=== PATIENT | female | born 1970 | race Caucasian/White ===

== ENCOUNTER 2020-06-13 06:24 | Day surgery (SDC) | payer BC ==
[2020-06-13] VITALS (16 sets, daily range): BP systolic 100–125; BP diastolic 56–103
[~2020-06-13] VITALS: Ht 162.6 cm; Wt 84.7 kg
[2020-06-13] MEDS ORDERED: AMPH15TA PO (06:58)
[2020-06-13] MEDS ORDERED: BUPR300T86 PO (06:58)
[2020-06-13] MEDS ORDERED: AMIT25TA9 (06:58)
[2020-06-13] MEDS ORDERED: VITAMIN D (07:00)
[2020-06-13] MEDS ORDERED: MULT-1085 PO (07:00)
[2020-06-13] MEDS ORDERED: CALCIUM CARBONATE (07:00)
[2020-06-13] MEDS ORDERED: normal saline 1000ml 1,000 ML IV SCH (07:10)
[2020-06-13] MEDS ORDERED: midazolam 1 mg/ML 2ml injection ONE (08:40)
[2020-06-13] MEDS ORDERED: fentaNYL/PF 50MCG/1 ML 2ML syringe ONE (08:41)
[2020-06-13] MEDS ORDERED: HYDROcodone/acetaminophen 5mg/325mg tablet PO PRN ×2 (09:35)
== END 2020-06-13 11:45 | disposition home or self-care (01) ==
LOC: SSTAY O 06:24
PROVIDERS: ATTEND Radiology Vascular & Interventional Radiology
DX: M89.8X8 Other specified disorders of bone, other site (principal); C79.51 Secondary malignant neoplasm of bone; C50.511 Malignant neoplasm of lower-outer quadrant of right female breast; F41.8 Other specified anxiety disorders; G43.909 Migraine, unspecified, not intractable, without status migrainosus; Z98.890 Other specified postprocedural states; Z79.899 Other long term (current) drug therapy; Z98.51 Tubal ligation status; Z80.0 Family history of malignant neoplasm of digestive organs
CPT/HCPCS: 20220; 71045; 77012; 99152; 99153; J2250; J3010; J7030; 20225

== ENCOUNTER 2020-09-01 10:40 | Outpatient (CLI) | payer BC ==
[~2020-09-01 10:40] MED LIST: AMIT25TA9; AMPH15TA PO; BUPR300T86 PO; CALCIUM CARBONATE; MULT-1085 PO; VITAMIN D
== END 2020-09-01 23:59 | disposition home or self-care (01) ==
LOC: CARD DIAG 10:40
PROVIDERS: ATTEND Internal Medicine
DX: C50.511 Malignant neoplasm of lower-outer quadrant of right female breast (principal); I37.1 Nonrheumatic pulmonary valve insufficiency; D70.1 Agranulocytosis secondary to cancer chemotherapy; Z51.11 Encounter for antineoplastic chemotherapy; Z01.818 Encounter for other preprocedural examination
CPT/HCPCS: 93306